=== PATIENT | male | born 1990 | race Caucasian/White ===

== ENCOUNTER 2021-07-26 16:51 | Emergency (ER) | payer MEDICARE, OTHER, SELFPAY ==
[2021-07-26 17:40] VITALS: BP 126/77; PULSE 82; RESP 18; TEMP 36.8; O2SAT 97; BMI 26.4
[2021-07-26 18:00] LABS: UTC Influenza A Antigen Negative (Negative); UTC Influenza B Antigen Positive (Negative)
--- NOTE | 2021-07-26 18:03 | HMH.EDUTC ---
[facility] Disposition Clinical Impression: Influenza Disposition: Home, Self-Care Condition on Discharge: Good Instructions: Influenza, How to Avoid a Cold or Flu, Oseltamivir Additional Instructions: ? Start Tamiflu today if you are going to take it. Discussed risk and possible benefits. ? Lots of rest ? Increase Fluids water, Gatorade, powerade, pedialyte,if /toddler/child ? Alternate Tylenol and / or ibuprofen as discussed for fever, aches, chills Follow up IMMEDIATELY with your family doctor for new or worsening Symptoms OR no noticeable improvement over the next 48-72 hours, 911 for difficulty or breathing ? You or your child area contagious until no fever, aches, chills for 24 hours with medication for symptoms ? Help Prevent the spread of influenza: ? Wash your hands often. Use soap and water. Wash your hands after you use the bathroom, change a child's diapers, or sneeze. Wash your hands before you prepare or eat food. Use gel hand cleanser that has 60% alcohol, when soap and water are not available. Do not touch your eyes, nose, or mouth unless you have washed your hands first. ? Cover your mouth when you sneeze or cough. Cough into a tissue or the bend of your arm. If you use a tissue, throw it away immediately and wash your hands. ? Clean shared items with a germ-killing overhead cleaner maintainer. Clean table surfaces, doorknobs, and light switches. Do not share towels, silverware, and dishes with people who are sick. Wash bed sheets, towels, silverware, and dishes with soap and water. ? Wear a mask over your mouth and nose if you are sick. The face mask may help protect others from becoming infected with the flu. Wear the mask when in common areas of your home or if you seek care with a healthcare provider. ? Stay away from others if you are sick. Stay at home until 24 hours after your fever and symptoms are gone. Prescriptions: Oseltamivir Phosphate [Tamiflu 75mg Capsule] 75 mg PO BID #10 cap Transmission Status: Pending to [facility] #[id number] Referrals: Provider,Referral, [Primary Care Provider] - Forms: Work/School Release Time of Disposition: 18:11 Medical Decision Making - Kobi Inquiry Pt receiving controlled substance: No Kobi was queried for this patient: No Vital Signs: 07/26/21 17:40 Temperature 98.3 F Temperature Source Oral Pulse Rate [Right Brachial] 82 Respiratory Rate 18 Blood Pressure [Right Arm] 126/77 Blood Pressure Mean [Right Arm] 93 Blood Pressure Source [Right Arm] Automatic Cuff Blood Pressure Position [Right Arm] Sitting 02 Sat by Pulse Oximetry 97 Oxygen Delivery Method Room Air - Lab Data Lab results reviewed: Yes: I reviewed the patient's lab results. Lab Results 07/26/21 17:59: Influenza Type A Ag Negative, Influenza Type B Ag Positive A [facility] HPI - General Stated complaint: Migraine Time Seen by Provider: 07/26/21 18:03 Mode of Arrival: Ambulatory Source of Information: Patient Limitations: No Limitations Description of Symptoms (Recalled from Triage Doc. by RN): PATIENT C/O HEADACHE, DIARRHEA, AND CHILLS X 2 DAYS HEENT Symptoms (Recalled from RN notes): Yes Resp Symptoms (Recalled from RN notes): No Skin Symptoms (Recalled from RN notes): No MS Symptoms (Recalled from RN notes): No Functional Status (Recalled from RN notes): WNL - History of Present Illness Provider Complaint: Patient states that he has been having headache body aches, chills and diarrhea States that he has a history of migraines but doesnt feel like it does when he has one and he was feeling achy all over so he came in - Related Data Previous Rx's Medication Instructions Recorded Oseltamivir Phosphate [Tamiflu 75 mg PO BID #10 cap 07/26/21 75mg Capsule] Allergies Allergy/AdvReac Type Severity Reaction Status Date / Time No Known Allergies Allergy Verified 06/23/19 16:06 - Worker's Comp Is this a Worker's Comp case?: No [facility] History - Hepatitis A Screen Drug
[2021-07-26 18:27] VITALS: BP 126/77; PULSE 82; RESP 18; TEMP 36.8; O2SAT 97
== END 2021-07-26 18:34 | disposition home or self-care (01) ==
PROVIDERS: Emergency Provider Nurse Practitioner
DX: J10.1 Influenza due to other identified influenza virus with other respiratory manifestations (principal)
CPT/HCPCS: G0463; 87804; 99202

== ENCOUNTER 2023-07-08 21:32 | Emergency (ER) | payer OTHER, SELFPAY ==
[2023-07-08 21:41] VITALS: BMI 21.6
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
--- NOTE | 2023-07-08 21:42 | PC.NURSE ---
cancelled trauma alert at this time. ems downgraded. Spoke with Nathan Garner.
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
[2023-07-08] MEDS: FENTANYL 100MCG/2ML VIAL 100 MCG IV (21:43)
[2023-07-08 21:47] VITALS: BP 160/100; PULSE 113; RESP 20; TEMP 36.6; O2SAT 99
[2023-07-08 21:54] LABS: Chloride 97 mmol/L (98-107)
[2023-07-08 21:55] LABS: Potassium 3.8 mmoL/L (3.5-5.1); Sodium 137 mmol/L (136-145)
[2023-07-08 21:57] LABS: Alanine Aminotransferase 60 U/L (12-78); Aspartate Amino Transferase 91 U/L (17-59); Blood Urea Nitrogen 7 mg/dl (9-20); Creatinine Clearance Estimated 128 mL/min (50-200); Estimated Glomerular Filt Rate 132 ml/min (>60); GFR (African American) 159 ML/MIN (>60)
[2023-07-08 21:58] LABS: Albumin Level 4.4 g/dl (3.5-5.0); Albumin/Globulin Ratio 1.6 (1.1-1.8); Alkaline Phosphatase 45 U/L (38-126); Anion Gap 10.8 mEq/L (5-15); Bilirubin,Total 0.5 mg/dl (0.2-1.3); Carbon Dioxide 33 mmol/L (22.0-30.0); Globulin 2.8 g/dL (1.3-3.2); Glucose 161 mg/dl (74-100); Total Protein,Serum 7.2 g/dl (6.3-8.2)
--- NOTE | 2023-07-08 22:09 | PC.NURSE ---
pt in CT
[2023-07-08 22:13] LABS: Activated Partial Thrombo Time 22.5 seconds (22.8-30.6); INR 0.98 (0.9-1.1); Prothrombin Time 10.6 seconds (10.1-12.5)
--- NOTE | 2023-07-08 22:28 | PC.NURSE ---
Patient reports difficulty with breathing, c-collar in place. Oxygen saturation 99% on room air, shallow breathing noted with some redness to upper chest. Ascultation has noted diminished bilateral lower lobe breath sounds. Notified provider whom came to bedside to assess. Provider placed patient in reverse trendelenburg at this time.
[2023-07-08] MEDS: IOPAMIDOL-370 (76%);100ML BOTTLE 180 ML IV (22:29)
[2023-07-08] MEDS: 0.9 % SODIUM CHLORIDE 50 ML VIAL IV (22:29)
[2023-07-08] MEDS: SODIUM CHLORIDE 0.9% 10ML SYR (RAD ONLY) 10 ML IV (22:29)
[2023-07-08 22:30] VITALS: BP 146/87; PULSE 113; RESP 32; O2SAT 100
[2023-07-08 22:33] LABS: Basophils # 0.1 K/mm3 (0-0.2); Basophils % 0.4 % (0.1-2.0); Eosinophils # 0.1 K/mm3 (0.0-0.4); Eosinophils % 0.4 % (0.1-12.0); Hematocrit 56.4 % (42.0-52.0); Lymphocytes % 4.8 % (10-50); Mean Corpuscular HGB Conc 33.1 g/dL (31.8-35.4); Mean Corpuscular Hemoglobin 31.3 pg (27.0-31.2); Mean Corpuscular Volume 94.4 fl (80-94); Mean Platelet Volume 8.1 fl (7.4-10.4); Monocytes # 0.8 K/mm3 (0.1-1.0); Monocytes % 3.9 % (1.7-9.3); Neutrophils # 18.7 K/mm3 (1.8-7.8); Neutrophils % 90.5 % (37.0-80.0); Platelet Count 371 K/mm3 (142-424); Red Blood Count 5.98 M/mm3 (4.60-6.20); Red Cell Distribution Width 13.7 % (11.5-17.5); White Blood Count 20.6 K/mm3 (4.8-10.8)
[2023-07-08 22:38] LABS: Hemoglobin 18.7 g/dL (14.1-18.0)
[2023-07-08 22:39] LABS: MANUAL DIFFERENTIAL MANUAL DIFFERENTIAL (MANUAL DIFF)
--- NOTE | 2023-07-08 22:41 | PC.NURSE ---
C-spine clear, verbal order to remove c-collar.
[2023-07-08 22:44] LABS: Lymphocytes % 7 % (10-50); Monocytes % 5 % (2-9); Neutrophils % 88 % (42-76); Platelet Estimate Normal; RBC Morphology Normal; Total Cells Counted 100
--- NOTE | 2023-07-08 23:22 | PC.NURSE ---
Called [facility] for possible transfer
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
--- NOTE | 2023-07-08 23:35 | PC.NURSE ---
[facility] notified of transfer
[2023-07-08] MEDS: TET/DIPHTH/PERT-ADULT 0.5ML SYRINGE 0.5 ML IM (23:52)
[2023-07-09 00:01] VITALS: BP 143/93; PULSE 113; RESP 24; TEMP 36.7; O2SAT 98
== END 2023-07-09 00:04 | disposition other institution (70) ==
PROVIDERS: Emergency Provider Emergency Medicine
DX: S22.078A Other fracture of T9-T10 vertebra, initial encounter for closed fracture; S22.41XA Multiple fractures of ribs, right side, initial encounter for closed fracture; S32.028A Other fracture of second lumbar vertebra, initial encounter for closed fracture; S27.0XXA Traumatic pneumothorax, initial encounter; F17.210 Nicotine dependence, cigarettes, uncomplicated; V48.5XXA Car driver injured in noncollision transport accident in traffic accident, initial encounter; Y92.410 Unspecified street and highway as the place of occurrence of the external cause
CPT/HCPCS: 70450; 70496; 70498; 71045; 71275; 72125; 72128; 72131; 72170; 74174; 80053; 85007; 85025; 85610; 85730; 90471; 90715; 96374; 99285; Q9967

== ENCOUNTER 2023-10-30 13:49 | Emergency (ER) | payer MEDICARE, OTHER, SELFPAY ==
[2023-10-30 14:25] VITALS: BP 110/86; PULSE 75; RESP 18; TEMP 36.6; O2SAT 99; BMI 21.2
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
[2023-10-30 14:54] VITALS: BP 110/86; PULSE 75; RESP 18; TEMP 36.6; O2SAT 99
== END 2023-10-30 14:56 | disposition home or self-care (01) ==
PROVIDERS: Emergency Provider Nurse Practitioner
DX: H53.143 Visual discomfort, bilateral (principal)
CPT/HCPCS: 99212; 99213; G0463

== ENCOUNTER 2024-09-15 15:08 | Emergency (ER) | payer MEDICARE, OTHER, SELFPAY ==
[2024-09-15 15:12] VITALS: BP 120/70; PULSE 92; RESP 18; TEMP 36.6; O2SAT 100; BMI 22.0
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
[2024-09-15 15:30] VITALS: BP 172/100; PULSE 95; O2SAT 95
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
[2024-09-15] MEDS: OXYCODONE 5MG IMMEDIATE RELEASE TABLET 5 MG PO (15:42)
[2024-09-15] MEDS: ACETAMINOPHEN 500MG TAB 1000 MG PO (15:42)
[2024-09-15] MEDS: BACITRACIN ZINC OINT 30GM TUBE TP (15:42)
[2024-09-15] MEDS: TET/DIPHTH/PERT-ADULT 0.5ML SYRINGE 0.5 ML IM (15:53)
[2024-09-15 16:10] VITALS: BP 132/88; PULSE 80; RESP 20; TEMP 36.6; O2SAT 97
== END 2024-09-15 16:22 | disposition home or self-care (01) ==
PROVIDERS: Emergency Provider Emergency Medicine
DX: T23.242A Burn of second degree of multiple left fingers (nail), including thumb, initial encounter (principal); Z23 Encounter for immunization; X16.XXXA Contact with hot heating appliances, radiators and pipes, initial encounter; Y93.89 Activity, other specified; Y92.9 Unspecified place or not applicable
CPT/HCPCS: 90471; 90715; 99284